=== PATIENT | female | born 1980 | race Two or more races ===

== ENCOUNTER 2020-02-13 10:43 | Inpatient (IN) | payer MEDICAID ==
[2020-02-13] VITALS (32 sets, daily range): BP systolic 130–222; BP diastolic 85–143
[~2020-02-13] VITALS: Ht 154.4 cm; Wt 57.0 kg
--- NOTE | 2020-02-13 10:50 | NUR ---
ED Nurse Note: Brought in by ambulance from home due to sudden dyspnea/SOB. Reports no CP. Patient found to have pulse oximetry reading ~80% on room air. EMS provided 15L NB. Pulse oximetry reading now is 100%. Patient sitting on the side of the bed, maintaining high valdez position. Patient get dialysis T, TH, SAT and did not miss her dialysis. Dialysis catheter to right upper chest noted. Placed patient on quality assurance monitor chassis, established IV. Reassured patient. Bed in lowest position. Call light within reach. Airborne, contact, droplet precaution initiated.
[2020-02-13] MEDS ORDERED: Nitroglycerin 2% oint pkt TOPIC ONE (11:15)
[2020-02-13] MEDS: Nitroglycerin Subl 0.4mg tab SL PRN ×3 (11:17→11:29)
[2020-02-13 11:24] LABS: BASOPHILS % (AUTO) 1.3 % (0.0-2.0); EOSINOPHILS % (AUTO) 1.1 % (0.0-3.0); HEMOGLOBIN 8.5 G/DL (12.0-16.0); LYMPHOCYTES % (AUTO) 11.5 % (20.0-45.0); MEAN CORPUSCULAR VOLUME 83 FL (80-99); MONOCYTES % (AUTO) 4.6 % (1.0-10.0); NEUTROPHILS % (AUTO) 81.5 % (45.0-75.0); PLATELET COUNT 111 K/UL (150-450); RED BLOOD COUNT 3.01 M/UL (4.20-5.40); RED CELL DISTRIBUTION WIDTH 15.3 % (11.6-14.8); WHITE BLOOD COUNT 8.5 K/UL (4.8-10.8)
[2020-02-13 11:28] LABS: ANION GAP 15 mmol/L (5-15); BLOOD UREA NITROGEN 67 mg/dL (7-18); CALCIUM 8.1 MG/DL (8.5-10.1); CARBON DIOXIDE 21 MMOL/L (21-32); CHLORIDE 101 MMOL/L (98-107); CREATININE 10.7 MG/DL (0.55-1.30); POTASSIUM 5.2 MMOL/L (3.5-5.1); SODIUM 137 MMOL/L (136-145)
--- NOTE | 2020-02-13 11:35 | NUR ---
ED Nurse Note: Patient c/o feeling hot and asking for air @ 1120. Patient appears to be anxious, sweating noted. Given NTG tablet as ordered and no sweating visible and patient applears to be comfortable. Patient sitting in high valdez position. reports no CP. Bed in lowest position. Call light within reach.
[2020-02-13 11:42] LABS: ALANINE AMINOTRANSFERASE 21 U/L (12-78); ALBUMIN 3.6 G/DL (3.4-5.0); ALBUMIN/GLOBULIN RATIO 0.9 (1.0-2.7); ALKALINE PHOSPHATASE 92 U/L (46-116); ASPARTATE AMINO TRANSFERASE 30 U/L (15-37); BILIRUBIN,TOTAL 0.9 MG/DL (0.2-1.0)
--- NOTE | 2020-02-13 11:46 | NUR ---
ED Nurse Note: RT placed BiPAP 06/02 @ 100%. Patient reports improved breathing, tolerating BiPAP at this time. Pulse oximetry reading @ 100%
--- NOTE | 2020-02-13 13:07 | NUR ---
ED Nurse Note: Patient reported bleeding with Bumex and RN checked with Sagar, pharmacist and it's the same class of medication with Lasix. Will check with ERMD if it ok to administer.
--- NOTE | 2020-02-13 13:15 | NUR ---
ED Nurse Note: BUDD made aware that patient received blood transfusion last Thursday. Patient states she has bleeding with Bumex. ERMD ordered to hold Lasix at this time.
--- NOTE | 2020-02-13 13:30 | NUR ---
ED Nurse Note: BUDD made aware of blood pressure 190/133. Patient reports no CP.
--- NOTE | 2020-02-13 13:30 | NUR ---
ED Nurse Note: Report given to MERA Nunn.
[2020-02-13] MEDS ORDERED: IRON159 MG PO (13:31)
[2020-02-13] MEDS ORDERED: AMLODIPINE BESYL5 MG ORAL (13:31)
[2020-02-13] MEDS ORDERED: LABETALOL HCL100 MG ORAL (13:32)
--- NOTE | 2020-02-13 14:26 | NUR ---
ED Nurse Note: ENDROSEMENT RECEIVED FROM MERA SALGADO. PT PN BIPAP SETTINGS; 06/10. PT SBP 192. ERMD AWARE. WILL START PT ON NITRO DRIP. PT HAS TWO IV SITES, BOTH PATENT AND INTACT. PT TOLERATING BIPAP WELL.
--- NOTE | 2020-02-13 14:27 | NUR ---
ED Nurse Note: Patient moved from room 7 to 1. Report given to MERA Gomez. Patient remained on BiPAP. Dr. Gonzalez notified of high BP. Patient reports no CP and tolerating BiPAP comfortably.
[2020-02-13] MEDS ORDERED: Nitroglycerin 50mg/250ml btl 250 ML IV SCH (14:30)
--- NOTE | 2020-02-13 15:05 | NUR ---
ED Nurse Note: TELEPHONE ENDORSEMENT GIVEN TO MERA DUNBAR FOR CONTINUITY OF CARE.
--- NOTE | 2020-02-13 15:14 | NUR ---
ED Nurse Note: MRSA SWAB COLLECTED, PT REFUSED VRE/CRE
--- NOTE | 2020-02-13 15:42 | NUR ---
TRANSFER TO FLOOR: Patient transferred to ICU as ordered, per ERMD. Report given to MERA DUNBAR. Belongings GIVEN TO PT.
--- NOTE | 2020-02-13 15:45 | NUR ---
NURSE NOTES: Pt and report received from MERA Gomez. Pt admitted to ICU from ED for respiratory distress. Pt awake, alert, and oriented x4. No distress and/or discomfort noted at this time. Pt on Non rebreather 15L, O2sat 100%. PIV Lt AC and Rt AC #20g, running Nitroglycerin @ 50mcg/min. B/P in the 190's. Dr Mccarty on the unit assessing pt, ordered STAT dialysis for today. Pt has Rt upper chest ravindra cath. Skin clean. Pt oriented to the unit. Bed locked and in lowest position with call light within reach. Will resume plan of care.
[2020-02-13] MEDS ORDERED: Heparin Sod 1000 units/ml 10ml IV PRN (16:01)
[2020-02-13] MEDS ORDERED: Heparin 1000 units/ml 1ml Vial INJ PRN (16:01)
--- NOTE | 2020-02-13 17:00 | NUR ---
NURSE NOTES: Pt resting comfortably in bed, eating dinner and talking to family on her cell phone. No respiratory distress noted at this time. Pt remains on a non rebreather 15L, 100%. O2sat 100%. B/P remains high, in the 180's and Nitroglycerin continues to be increased.
[2020-02-13] MEDS: Nitroglycerin 50mg/250ml btl 250 ML IV SCH (17:03)
--- NOTE | 2020-02-13 17:10 | Diagnostic Imaging Report ---
Indication: Shortness of breath Technique: One view of the chest Comparison: none Findings: There are moderate to large bilateral pleural effusions. There is extensive bilateral interstitial and airspace edema versus infiltrates. The heart size is difficult to assess as it borders are largely obscured, probably enlarged. There is a right jugular tunneled dialysis catheter noted. Impression: Extensive bilateral interstitial and airspace edema versus infiltrates Moderate to large bilateral pleural effusions Cardiomegaly
--- NOTE | 2020-02-13 18:00 | Consultation ---
DATE OF CONSULTATION: 02/13/2020 ATTENDING PHYSICIAN: Stan Griffith MD REASON FOR CONSULTATION: This is a dialysis patient. HISTORY OF PRESENT ILLNESS: This is a 39-year-old female who started dialysis 2 months ago. The patient is on dialysis every Thursday, , and Thursday. She gets dialysis in a dialysis center about 15 miles from home, but only 2 hours. The patient claims that after 2 hours her blood pressure starts going up and she gets dizzy. She has only PermCath as her dialysis access. PAST MEDICAL HISTORY: 1. End-stage renal failure. 2. Hypertensive cardiovascular disease. MEDICATIONS: Amlodipine, oral iron, labetalol. ALLERGIES: Bumetanide, penicillins. FAMILY HISTORY: Unremarkable. SOCIAL HISTORY: She lives at home. HABITS: She is a nonsmoker, nondrinker. There is no history of illicit drug abuse. REVIEW OF SYSTEMS: HEENT: Hearing and eyesight are normal. ENDOCRINE: No history of diabetes, thyroid, or adrenal problems. RESPIRATORY: She has orthopnea, paroxysmal nocturnal dyspnea, and dyspnea on effort. CARDIAC: She denies chest pain or palpitations. GENITOURINARY: She denies dysuria, frequency, urgency, or hematuria. NEUROLOGIC: No history of stroke, syncope, Parkinson disease. PHYSICAL EXAMINATION: GENERAL: This is a very young female who is in moderate respiratory distress. VITAL SIGNS: Blood pressure 188/116, pulse 89, respirations 20, labored, temperature 98.4, oral HEENT: The head is normocephalic and atraumatic. Pupils are equal and reactive to light and accommodation consensually. NECK: Supple. Trachea midline. There was no lymphadenopathy or thyromegaly. LUNGS: Bilateral wheezes and crackles. CHEST: She has right-sided internal jugular PermCath. HEART: Regular rate and rhythm. She has a grade 2 ejection murmur. ABDOMEN: Soft and nontender. Bowel sounds were active. EXTREMITIES: No clubbing, cyanosis, or edema. NEUROLOGIC: She is alert and oriented x4. Cranial nerves II through XII intact. LABORATORY AND ANCILLARY DATA: CBC shows hematocrit 25, otherwise within normal limits. Chemistry, sodium 137, potassium 5.2, creatinine 10.7, BUN 67, troponin level 0.0733. ProBNP 35,000. IMAGING STUDIES: Not reported. ASSESSMENT: 1. Pulmonary edema. 2. End-stage renal failure. 3. Hypertensive cardiovascular disease. PLAN: 1. Start dialysis ordered. 2. Blood pressure control. Thank you, Dr. Griffith, for letting me to participate in the care of this patient. Scott Talavera M.D. DR: NAZARIO JOB#: [id number] CC:
--- NOTE | 2020-02-13 18:15 | History and Physical Report ---
DATE OF ADMISSION: 02/13/2020 REASON FOR ADMISSION: Hypertensive emergency. HISTORY OF PRESENT ILLNESS: This is a 39-year-old female who is a chronic dialysis patient who presents with pulmonary edema. The patient was placed on BiPAP and also started on nitroglycerin drip. The patient's care discussed and reviewed. The emergency documentation reviewed. The patient describes sudden dyspnea and shortness of breath. The patient was noted to be significantly hypoxemic. She was brought in by paramedics, placed initially on 15 liters non-rebreather. The patient does note she gets dialysis Thursday, , and Saturdays and did not miss the dialysis days. The patient does have a catheter in the right upper chest wall. PAST MEDICAL HISTORY: Notable for end-stage renal disease, hypertension. MEDICATIONS: Reviewed. ALLERGIES: Reviewed. SOCIAL HISTORY: The patient is a chronically disabled. PHYSICAL EXAMINATION: GENERAL: This is a well-developed female, currently on BiPAP. VITAL SIGNS: Temperature 98.4, pulse 89, respiratory rate 20, blood pressure 188/116. The patient is on BiPAP. HEENT: Negative. NECK: Supple. LUNGS: Moderate breath sounds and crackles noted in the bases. CARDIAC: S1, S2. Regular rate and rhythm. Positive S4. ABDOMEN: Soft, nontender, nondistended. EXTREMITIES: No cyanosis or clubbing. LABORATORY DATA: Reviewed. Hemoglobin 8.5. Chemistries, BUN 67, creatinine 10.7. Troponin 0.073. The BNP greater than 35,000. IMPRESSION: 1. End-stage disease. 2. Acute pulmonary edema. 3. Hypertension. 4. Hypertensive heart disease. 5. Hypertensive emergency, possible non-STEMI. RECOMMENDATIONS: Support clinically. Renal evaluation for hemodialysis. Nitroglycerin drip to continue. Blood pressure monitor and Cardiology followup. Serial troponins. Resume home medications. DVT prophylaxis. Optimize and transfer to low level of care when able. Stan Griffith M.D. DR: Adebayo JOB#: [id number] CC:
--- NOTE | 2020-02-13 18:20 | NUR ---
NURSE NOTES: JOVANNY dialysis nurse, Bishnu, at bedside connecting pt to dialysis machine.
--- NOTE | 2020-02-13 18:39 | Emergency Room Report ---
History of Present Illness General Chief Complaint: Dyspnea/Respdistress Source: Patient Present Illness HPI 39-year-old female presents the ED for shortness of breath. Brought in by EMS from home. History of end-stage renal disease. On dialysis. Patient tripoding on arrival. Patient unable to speak in sentences. Unable to provide any additional history at this time. No reported fevers or chills. No reported sick contacts. No other aggravating relieving factors. No other associated symptoms Allergies: Coded Allergies: BUMETANIDE (Verified Allergy, Unknown, 02/13/20) PENICILLINS (Verified Allergy, Unknown, 02/13/20) COVID-19 Screening Contact w/high risk pt: No Experienced COVID-19 symptoms?: Yes COVID-19 Testing performed INDEPENDENT JEWELER: Yes COVID-19 Screening: Negative COVID-19 COVID-19 Testing Source: unk Patient History Past Medical History: HTN, renal disease, dialysis Last Menstrual Period: unk Now: No Nursing Documentation-PMH Past Medical History: No History, Except For Hx Cardiac Problems: Yes - chf Hx Hypertension: Yes Hx Dialysis: Yes Review of Systems All Other Systems: negative except mentioned in HPI Physical Exam Vital Signs Date Time Temp Pulse Resp B/P (MAP) Pulse Ox O2 Delivery O2 Flow Rate FiO2 02/13/20 10:31 122 32 230/164 (186) 82 Room Air 02/13/20 11:06 15.0 02/13/20 11:47 100 02/13/20 14:21 98.4 Sp02 EP Interpretation: reviewed, normal General Appearance: alert, GCS 15, non-toxic, severe distress Head: normocephalic, atraumatic Eyes: bilateral eye normal inspection, bilateral eye PERRL ENT: hearing grossly normal, normal pharynx, no angioedema, normal voice Neck: full range of motion, supple/symm/no masses Respiratory: chest non-tender, accessory muscle use, crackles Cardiovascular #1: regular rate, rhythm, no edema Cardiovascular #2: 2+ carotid (R), 2+ carotid (L), 2+ radial (R), 2+ radial (L), 2+ dorsalis pedis (R), 2+ dorsalis pedis (L) Gastrointestinal: normal bowel sounds, non tender, soft, non-distended, no guarding, no rebound Rectal: deferred Genitourinary: normal inspection, no CVA tenderness Musculoskeletal: back normal, normal range of motion, gait/station normal, non- tender Neurologic: alert, motor strength/tone normal, oriented x3, sensory intact, responsive, speech normal Psychiatric: judgement/insight normal, memory normal, mood/affect normal, no suicidal/homicidal ideation Reflexes: 3+ bicep (R), 3+ bicep (L), 3+ tricep (R), 3+ tricep (L), 3+ knee (R), 3+ knee (L) Skin: other - see skin notes Lymphatic: no adenopathy Procedures Critical Care Time Critical Care Time i. I feel this is a highly complex case requiring extensive working including EKG/Rhythm strip, Xray/CT/US, Blood/urine lab work, repeat exams while in ED, and administration of strong opiates/narcotics for pain control, admission to hospital or close patient follow up. Total time: 75 min bedside evaluation and treatment excludes procedures (EKG). Reason for critical care: respiratory distress, pulmonay edema Possible complications: hypotension, hypertension, IA, shock, arrhythmias, metabolic acidosis, end organ damage, respiratory failure. Interventions: labs, EKG, CXR, ABG, COVID, nitro SL, nitropaste, nitro drip. Course: Patient presenting with shortness of breath. Diffuse rales. Tripoding position. Started on sublingual nitro and Nitropaste. ABG shows no significant hypercapnia or hypoxia. Started on BiPAP. COVID negative. Chest x-ray shows pulmonary edema. Patient respiratory status significantly improved but remains hypertensive. Started on nitro drip. Consultations: nursing staff, EMS, family Performed by: Dr Tran Tolerated well condition = critical j. because of unstable vital signs this patient had a condition that could potentially threaten life or limb. I feel this is a critical patient who required my full attention while patient was considered critical. Total Critical Care Time excluding procedures was greater than 75 minutes Medical Decision Making Diagnostic Impression: Primary Impression: Pulmonary edema Qualified Codes: J81.0 - Acute pulmonary edema Additional Impressions: ESRD on dialysis Hypertensive emergency ER Course Hospital Course 39-year-old female presents with shortness of breath, diffuse crackles and rales. Differential diagnoses include: IA/unstable angina, contusion, muscle strain, PTX, rib fracture Clinical course Patient placed on stretcher. on traffic monitor specialist. In isolation. I ordered COVID test. Diffuse rales noted. I ordered sublingual nitro and Nitropaste. BiPAP started. labs reviewed- no leukocytosis, hemoglobin/hematocrit stable, bun/creatinine elevated, troponins negative, BNP elevated EKG - NSR no acute ischemic changes interpreted by me CXR - pulmonary edema respiratory status improved after BiPAP and nitro. Patient cannot tolerate Lasix. Started on nitro drip because BP remains elevated Case discussed with Dr. Toro and he agreed to accept the patient to his service for further care and support I. I feel this is a highly complex case requiring extensive working including EKG/Rhythm strip, Xray/CT/US, Blood/urine lab work, repeat exams while in ED, and administration of strong opiates/narcotics for pain control, admission to hospital or close patient follow up. Diagnosis - pulmonary edema, esrd on dialysis, hypertensive emergency admitted to ICU in critical condition Laboratory Tests Test 02/13/20 10:43 02/13/20 10:45 02/13/20 11:08 White Blood Count 8.5 K/UL (4.8-10.8) Red Blood Count 3.01 M/UL (4.20-5.40) L Hemoglobin 8.5 G/DL (12.0-16.0) L Hematocrit 25.0 % (37.0-47.0) L Mean Corpuscular Volume 83 FL (80-99) Mean Corpuscular Hemoglobin 28.4 PG (27.0-31.0) Mean Corpuscular Hemoglobin Concent 34.1 G/DL (32.0-36.0) Red Cell Distribution Width 15.3 % (11.6-14.8) H Platelet Count 111 K/UL (150-450) L Mean Platelet Volume 5.8 FL (6.5-10.1) L Neutrophils (%) (Auto) 81.5 % (45.0-75.0) H Lymphocytes (%) (Auto) 11.5 % (20.0-45.0) L Monocytes (%) (Auto) 4.6 % (1.0-10.0) Eosinophils (%) (Auto) 1.1 % (0.0-3.0) Basophils (%) (Auto) 1.3 % (0.0-2.0) Sodium Level 137 MMOL/L (136-145) Potassium Level 5.2 MMOL/L (3.5-5.1) H Chloride Level 101 MMOL/L (98-107) Carbon Dioxide Level 21 MMOL/L (21-32) Anion Gap 15 mmol/L (5-15) Blood Urea Nitrogen 67 mg/dL (7-18) H Creatinine 10.7 MG/DL (0.55-1.30) H Estimat Glomerular Filtration Rate 4.0 mL/min (>60) Glucose Level 121 MG/DL (74-106) H Lactic Acid Level 0.80 mmol/L (0.4-2.0) Calcium Level 8.1 MG/DL (8.5-10.1) L Total Bilirubin 0.9 MG/DL (0.2-1.0) Aspartate Amino Transf (AST/SGOT) 30 U/L (15-37) Alanine Aminotransferase (ALT/SGPT) 21 U/L (12-78) Alkaline Phosphatase 92 U/L (46-116) Troponin I 0.073 ng/mL (0.000-0.056) Pro-B-Type Natriuretic Peptide > 26758 pg/mL (0-125) H Total Protein 7.8 G/DL (6.4-8.2) Albumin 3.6 G/DL (3.4-5.0) Globulin 4.2 g/dL Albumin/Globulin Ratio 0.9 (1.0-2.7) L Hepatitis B Surface Antigen Pending Arterial Blood pH 7.313 (7.350-7.450) Arterial Blood Partial Pressure CO2 39.5 mmHg (35.0-45.0) Arterial Blood Partial Pressure O2 114.2 mmHg (75.0-100.0) H Arterial Blood HCO3 19.6 mmol/L (22.0-26.0) L Arterial Blood Oxygen Saturation 97.2 % (95-100) Arterial Blood Base Excess -6.1 (-2-2) L Logan Test Positive EKG Diagnostic Results Rate: normal Rhythm: NSR ST Segments: no acute changes ASA given to the pt in ED: No Rhythm Strip Diag. Results EP Interpretation: yes Rhythm: NSR, no PVC's, no ectopy Chest X-Ray Diagnostic Results Chest X-Ray Diagnostic Results : Chest X-Ray Ordered: Yes # of Views/Limited/Complete: 1 View Indication: Shortness of Breath EP Interpretation: Yes Interpretation: no pneumothorax, other - pulmonary edema Impression: Other - pulmonary edema Electronically Signed by: Electronically signed by Robert Tran MD Last Vital Signs Date Time Temp Pulse Resp B/P (MAP) Pulse Ox O2 Delivery O2 Flow Rate FiO2 02/13/20 18:00 95 26 182/135 (151) 100 02/13/20 16:22 15.0 100 02/13/20 16:22 Non-Rebreather 02/13/20 15:58 98.5 Status: improved Disposition: ADMITTED INPATIENT Condition: Critical Referrals: NOT CHOSEN IPA/,REFERRING (PCP) Robert Tran MD Feb 13, 2020 18:39
--- NOTE | 2020-02-13 19:21 | NUR ---
NURSE HAND-OFF REPORT: Latest Vital Signs: Temperature 98.5 , Pulse 92 , B/P 152 /109 , Respiratory Rate 27 , O2 SAT 100 , Non-Rebreather, O2 Flow Rate 15.0L . Vital Sign Comment: EKG Rhythm: Sinus Rhythm Rhythm change?: MD Notified?: - MD Response: Latest Castillo Fall Score: 35 Fall Risk: Medium Risk Safety Measures: Call light Within Reach, Bed Alarm Zone 2, Side Rails Side Rails x3, Bed position Low and Locked. Fall Precautions: Yellow Socks Patient Fall Education Report given to MERA Jauregui.
--- NOTE | 2020-02-13 19:30 | NUR ---
NURSE NOTES: Received pt with chief complaints of SOB , a hemodialysis pt with Jeyson cath Rt SVC. SR on the monitor, pt on NTG drip at 100mcg/min at this time,Current bp 156/110. afebrile. On 100% NRB mask 02 sat 100%..On upright position at this time Will continue to monitor.
[2020-02-13] MEDS: Dyna-Hex 2% Top Sol 2oz TOPIC SCH (20:16)
--- NOTE | 2020-02-13 20:20 | NUR ---
NURSE NOTES: Hemodialysis was finished with 2L out.
[2020-02-13] MEDS: Epoetin Alfa-EPBX(ESRD on dialysis)4000 units/ml vial SUBQ SCH ×2 (21:00→21:29)
[2020-02-13] MEDS: Heparin 5000 units/ml inj SUBQ SCH (21:00)
[2020-02-13] MEDS: Pantoprazole Inj IVP SCH (21:01)
[2020-02-13] MEDS: Docusate 100mg cap ORAL SCH (21:02)
--- NOTE | 2020-02-13 21:08 | NUR ---
NURSE NOTES: Heparin on hold due to platelet ct 111
--- NOTE | 2020-02-13 23:30 | NUR ---
NURSE NOTES: Sleeping well at this time. no discomfort noted. NTG drip at 100mcg/min at this time. SBP 150s.
[2020-02-14] VITALS (21 sets, daily range): BP systolic 126–166; BP diastolic 84–106
--- NOTE | 2020-02-14 02:00 | NUR ---
NURSE NOTES: Still on NTG drip at 100mcg/min. Bp still on 150s. sleeping well at this time.No discomfort noted.
--- NOTE | 2020-02-14 03:50 | NUR ---
NURSE NOTES: Placed on Venturi mask 30% (4Liters ) by Resp therapist
--- NOTE | 2020-02-14 04:30 | Consultation ---
DATE OF CONSULTATION: 02/13/2020 CARDIOLOGY CONSULTATION CONSULTING PHYSICIAN: Abhishek Vargas M.D. REQUESTING PHYSICIAN: Stan Griffith M.D. REASON: Hypertensive urgency. HISTORY OF PRESENT ILLNESS: This is a 39-year-old female who is on hemodialysis, presented to the emergency room with shortness of breath and was noted to have clinical and radiographic evidence of pulmonary edema and hypoxia. The patient was on a non-rebreather mask and had her last dialysis session Thursday (she is on a Thursday, , Thursday schedule). The patient denied any chest pain, but has been short of breath. PAST MEDICAL HISTORY: Hypertension, end-stage renal disease, PermCath. ALLERGIES: Include penicillin and bumetanide. MEDICATIONS: Reviewed and reconciled. FAMILY HISTORY: Noncontributory. SOCIAL HISTORY: Nonsmoker. No alcohol or substance abuse. REVIEW OF SYSTEMS: No fevers. No loss of vision or hearing. No fevers or chills. No known history of diabetes or thyroid disorder. No history of seizure or stroke. No history of prior heart attack. PHYSICAL EXAMINATION: GENERAL: She is in moderate respiratory distress. VITAL SIGNS: Blood pressure 188/116, heart rate 89, respiratory rate 20, and she is afebrile. HEENT: Conjunctivae pink. Oropharynx clear. NECK: Supple. Jugular venous pressure elevated. LUNGS: With bilateral rales. CARDIAC: Regular rhythm and rate. Normal S1, S2. A 1/6 systolic murmur at base. CHEST WALL: Right chest wall internal jugular PermCath site clean and dry. ABDOMEN: Soft, nontender. No bruits. EXTREMITIES: No edema. LABORATORY AND DIAGNOSTIC DATA: Labs reviewed with natriuretic peptide of 35,000 and troponin of 0.073. Hematocrit was 25% and potassium 5.2. EKG with sinus rhythm. No acute abnormalities. IMPRESSION: 1. Hypertensive urgency. 2. End-stage renal disease. 3. Pulmonary edema. 4. Pleural effusions. 5. Acute myocardial ischemia and possible [id number] myocardial infarction precipitated by uncontrolled blood pressure. PLAN: 1. BiPAP support. 2. IV nitroglycerin. 3. Initiate oral amlodipine and labetalol and titrate. 4. Hold heparin for now until blood pressure controlled. 5. Hemodialysis with ultrafiltration. 6. Serial troponin levels. Abhishek Vargas M.D. DR: ARIANA JOB#: [id number] CC:
[2020-02-14] MEDS: Nitroglycerin 50mg/250ml btl 250 ML IV SCH (04:31)
[2020-02-14 05:51] LABS: HEMATOCRIT 21.6 % (37.0-47.0); HEMOGLOBIN 7.4 G/DL (12.0-16.0); MEAN CORPUSCULAR VOLUME 84 FL (80-99); PLATELET COUNT 104 K/UL (150-450); RED BLOOD COUNT 2.58 M/UL (4.20-5.40); RED CELL DISTRIBUTION WIDTH 14.9 % (11.6-14.8); WHITE BLOOD COUNT 6.3 K/UL (4.8-10.8)
--- NOTE | 2020-02-14 06:00 | NUR ---
NURSE NOTES: Still sleeping at this time. BP within acceptable range, Still on NTG drip at 100mcg/min.
[2020-02-14 06:17] LABS: CALCIUM 8.2 MG/DL (8.5-10.1); CREATININE 8.6 MG/DL (0.55-1.30); POTASSIUM 4.5 MMOL/L (3.5-5.1)
--- NOTE | 2020-02-14 07:31 | NUR ---
NURSE HAND-OFF REPORT: Latest Vital Signs: Temperature 97.5 , Pulse 68 , B/P 157 /105 , Respiratory Rate 18 , O2 SAT 100 , Non-Rebreather, O2 Flow Rate 3.0 . Vital Sign Comment: EKG Rhythm: Sinus Rhythm Rhythm change?: N MD Notified?: - MD Response: Latest Castillo Fall Score: 35 Fall Risk: Medium Risk Safety Measures: Call light Within Reach, Bed Alarm Zone 2, Side Rails Side Rails x3, Bed position Low and Locked. Fall Precautions: Yellow Socks Patient Fall Education Report given to [Herman TESFAYE.
--- NOTE | 2020-02-14 08:00 | NUR ---
0745 FULLY AWAKE/ALERT VS/CONDITION STABLE ENCOURAGED TAKE DEEP BREATH/COUGH FOLOWS WELL ON O2 3L/NC HOB @35 NOACUTE DISTRESS NOTED
--- NOTE | 2020-02-14 08:05 | General Progress Note ---
Subjective Allergies: Coded Allergies: BUMETANIDE (Verified Allergy, Unknown, 02/13/20) PENICILLINS (Verified Allergy, Unknown, 02/13/20) Subjective care noted improved bp better Objective Last 24 Hour Vital Signs Date Time Temp Pulse Resp B/P (MAP) Pulse Ox O2 Delivery O2 Flow Rate FiO2 02/14/20 05:19 100 Nasal Cannula 3.0 32 02/14/20 04:33 68 157/105 02/14/20 04:31 152/100 02/14/20 04:00 83 02/14/20 04:00 Non-Rebreather 15.0 02/14/20 03:23 100 Venturi Mask 4.0 30 02/14/20 00:00 Non-Rebreather 15.0 02/13/20 22:45 77 18 143/96 (112) 100 02/13/20 22:30 81 21 153/111 (125) 100 02/13/20 22:15 95 26 171/114 (133) 91 02/13/20 22:00 91 17 146/101 (116) 95 02/13/20 21:45 101 27 130/85 (100) 99 02/13/20 21:30 90 25 159/113 (128) 93 02/13/20 21:15 100 23 168/118 (135) 92 02/13/20 21:02 84 173/111 02/13/20 21:00 85 18 173/111 (131) 100 02/13/20 20:45 86 23 158/119 (132) 100 02/13/20 20:30 83 26 178/119 (138) 100 02/13/20 20:15 90 26 161/126 (138) 100 02/13/20 20:00 Non-Rebreather 15.0 02/13/20 20:00 81 02/13/20 20:00 97.5 91 27 166/125 (139) 100 02/13/20 19:45 93 26 155/118 (130) 100 02/13/20 19:30 94 23 156/110 (125) 100 02/13/20 19:00 92 27 152/109 (123) 100 02/13/20 18:00 95 26 182/135 (151) 100 02/13/20 18:00 Non-Rebreather 15.0 02/13/20 17:45 82 23 199/119 (145) 100 02/13/20 17:30 95 28 186/127 (146) 100 02/13/20 17:15 100 23 182/127 (145) 97 02/13/20 17:03 177/131 02/13/20 17:00 93 23 177/131 (146) 100 02/13/20 16:45 91 22 179/128 (145) 100 02/13/20 16:30 96 19 181/128 (145) 100 02/13/20 16:22 15.0 100 02/13/20 16:22 Non-Rebreather 15.0 02/13/20 16:15 84 25 174/119 (137) 100 02/13/20 16:00 87 25 179/120 (139) 100 02/13/20 15:58 98.5 89 20 175/123 (140) 100 02/13/20 15:53 170/121 (137) 02/13/20 15:41 98.4 89 20 188/116 100 Bi-pap 15.0 100 02/13/20 15:23 98.4 86 20 174/127 100 Bi-pap 15.0 100 02/13/20 14:45 98 25 100 100 02/13/20 14:37 192/121 02/13/20 14:28 98.4 78 19 192/121 100 Bi-pap 15.0 100 02/13/20 14:21 98.4 81 22 192/100 100 Bi-pap 100 02/13/20 13:08 85 22 182/94 100 Bi-pap 02/13/20 13:00 81 20 Bi-pap 100 02/13/20 11:50 101 39 100 100 02/13/20 11:50 88 29 199/137 100 Bi-pap 100 02/13/20 11:47 100 02/13/20 11:32 197/133 02/13/20 11:29 197/149 02/13/20 11:23 220/150 02/13/20 11:17 222/143 02/13/20 11:06 119 28 222/143 100 Non-Rebreather 02/13/20 11:06 119 34 Non-Rebreather 15.0 02/13/20 10:31 122 32 230/164 (186) 82 Room Air Intake and Output 02/13/20 02/14/20 19:00 07:00 Intake Total 257.800 ml 470 ml Output Total 0 ml 2050 ml Balance 257.800 ml -1580 ml Intake Oral 100 ml 170 ml IV Total 157.800 ml 300 ml Output Urine Total 0 ml 50 ml Hemodialysis UF 2000 ml Laboratory Tests 02/13/20 10:43: White Blood Count 8.5, Red Blood Count 3.01L, Hemoglobin 8.5L, Hematocrit 25.0L, Mean Corpuscular Volume 83, Mean Corpuscular Hemoglobin 28.4, Mean Corpuscular Hemoglobin Concent 34.1, Red Cell Distribution Width 15.3H, Platelet Count 111L, Mean Platelet Volume 5.8L, Neutrophils (%) (Auto) 81.5H, Lymphocytes (%) (Auto) 11.5L, Monocytes (%) (Auto) 4.6, Eosinophils (%) (Auto) 1.1, Basophils (%) (Auto) 1.3, Sodium Level 137, Potassium Level 5.2H, Chloride Level 101, Carbon Dioxide Level 21, Anion Gap 15, Blood Urea Nitrogen 67H, Creatinine 10.7H, Estimat Glomerular Filtration Rate 4.0, Glucose Level 121H, Lactic Acid Level 0.80, Calcium Level 8.1L, Total Bilirubin 0.9, Aspartate Amino Transf (AST/SGOT) 30, Alanine Aminotransferase (ALT/SGPT) 21, Alkaline Phosphatase 92, Troponin I 0.073H, Pro-B-Type Natriuretic Peptide > 75685N, Total Protein 7.8, Albumin 3.6, Globulin 4.2, Albumin/Globulin Ratio 0.9L 02/13/20 10:45: Hepatitis B Surface Antigen Negative 02/13/20 11:08: Arterial Blood pH 7.313L, Arterial Blood Partial Pressure CO2 39.5, Arterial Blood Partial Pressure O2 114.2H, Arterial Blood HCO3 19.6L, Arterial Blood Oxygen Saturation 97.2, Arterial Blood Base Excess -6.1L, Logan Test Positive 02/14/20 05:25: White Blood Count 6.3, Red Blood Count 2.58L, Hemoglobin 7.4L, Hematocrit 21.6L, Mean Corpuscular Volume 84, Mean Corpuscular Hemoglobin 28.6, Mean Corpuscular Hemoglobin Concent 34.2, Red Cell Distribution Width 14.9H, Platelet Count 104L, Mean Platelet Volume 6.1L, Neutrophils (%) (Auto) , Lymphocytes (%) (Auto) , Monocytes (%) (Auto) , Eosinophils (%) (Auto) , Basophils (%) (Auto) , Sodium Level 136, Potassium Level 4.5, Chloride Level 100, Carbon Dioxide Level 23, Anion Gap 13, Blood Urea Nitrogen 50H, Creatinine 8.6H, Estimat Glomerular Filtration Rate 5.1, Glucose Level 92, Calcium Level 8.2L, Troponin I 0.126H, Neutrophils % (Manual) [Pending], Lymphocytes % (Manual) [Pending], Platelet Estimate [Pending], Platelet Morphology [Pending], Magnesium Level 2.1 Height (Feet): 5 Height (Inches): 0.80 Weight (Pounds): 120 Objective WDWN NAD clear breath sounds bilaterally without rhonchi or wheeze [id number] without MRG NABS nontender no HSM no CCE nonfocal Assessment/Plan Assessment/Plan: IMPRESSION: 1. End-stage disease. 2. Acute pulmonary edema. 3. Hypertension. 4. Hypertensive heart disease. 5. Hypertensive emergency, possible non-STEMI. PLAN taper drips antihypertensives HD monitor labs cardiology input noted medications/laboratory data/nursing notes/ICU care reviewed in detail note reviewed and edited care discussed with RN and RT ICU time spent >40 minutes Stan Griffith MD Feb 14, 2020 08:05
[2020-02-14] MEDS: Heparin 5000 units/ml inj SUBQ SCH ×2 (09:00→21:00)
[2020-02-14] MEDS: Pantoprazole Inj IVP SCH ×2 (09:07→21:35)
[2020-02-14] MEDS: Docusate 100mg cap ORAL SCH ×3 (09:08→21:35)
--- NOTE | 2020-02-14 09:26 | NUR ---
CASE MANAGEMENT: INITIAL REVIEW 39YR OLD BIBA FROM HOME CC: DYSPNEA . RESPIRATORY DISTRESS SI:NSTEMI . ACUTE PULMONARY EDEMA . RESPIRATORY DISTRESS . HYPERTENSIVE URGENCY . ESRD ON HD THROMBOCYTOPENIA 98.4 122 32 230/164 82% ON RA --- PLACED ON NRM K+5.2 BUN/CREAT 67/10.7 TROP 0.073 BNP>87000 PLT 111 ABG: pH 7.313 pO2 114.2 HCO3 19.6 IS: NTG Q5MIN X3 NITRO-BID TP X1 IV LASIX X1 IV LEVAQUIN X1 NITROGLYCERIN GTT PROTOCOL XRAY Chest 1v- Extensive bilateral interstitial and airspace edema versus infiltrates. Moderate to large bilateral pleural effusions. Cardiomegaly \: TRANSFER TO INTENSIVE CARE UNIT PLAN: BLOOD PRESSURE CONTROL OXYGEN THERAPY HD INITIATED HEP PANEL NEGATIVE CASE MANAGEMENT: REVIEW 02/14/20 SI:NSTEMI . ACUTE PULMONARY EDEMA . RESPIRATORY DISTRESS . HYPERTENSIVE URGENCY . ESRD ON HD THROMBOCYTOPENIA 98.6 88 16 157/105 100% ON NRM H/H 7.4/21.6 PLT 104 BUN/CREAT 50/8.6 TROP 0.126 IS:GTT NITROGLYCERIN PROTOCOL Q24 NORMODYNE PO BID NORVASC PO BID IV PROTONIX BID EPOETIN SQ MWF \:INTENSIVE CARE UNIT DCP: HOME WHEN STABLE PLAN: BLOOD PRESSURE CONTROL OXYGEN THERAPY ~FAILED WEANING MONITOR TROP ~INCREASING
--- NOTE | 2020-02-14 10:05 | Diagnostic Imaging Report ---
Indication: Shortness of breath Technique: One view of the chest Comparison: 02/13/2020 Edema versus infiltrates again demonstrated, stable on the right, suggestively slightly improved on the left. Bilateral pleural effusions persist, unchanged. Right jugular tunneled dialysis catheter is again demonstrated. Impression: Slightly improved edema versus infiltrates on the left, unchanged on the right Unchanged bilateral pleural fluid
--- NOTE | 2020-02-14 11:13 | NUR ---
0941 PT,SEEN BY MISAEL REINOSOW ORDERS
--- NOTE | 2020-02-14 12:11 | NUR ---
TECH ED TEACHER NOTE SW met w/ pt and completed the psychosocial assessment. Pt's primary language is Urdu. Pt was able to understand and speak Bengali. SW utilized gasfitter Irma #[id number] to have communication w/ pt smoothly. Pt presents as A&O4x. Pt currently resides w/ her family at [address] [place] [address]. Pt has three minor children living w/ her. Pt is unemployed and she receives financial support from her . PT is independent w/ ADLs and IADLs and ambulatory w/o DMEs. Pt denies tobacco use/ETOH use/substance abuse. PT also denies having mental health issue. Pt receives dialysis at [facility] every Tuesdays, and Saturdays. Pt did not share any concerns/needs at this time. Emergency contacts: Jimenez Dinero (brother) [phone]. Mauricio () does not have a phone number.
--- NOTE | 2020-02-14 12:49 | Nephrology Progress Note ---
Assessment/Plan Plan Noncompliance CHF, Uremic. Getting very poor HD outside. Needs 3.5 h x3/week. Needs AVF! Needs better BP control. Subjective Subjective No new c/o Objective Objective Last 24 Hour Vital Signs Date Time Temp Pulse Resp B/P (MAP) Pulse Ox O2 Delivery O2 Flow Rate FiO2 02/14/20 12:00 82 02/14/20 12:00 98.2 82 20 135/94 (108) 100 02/14/20 12:00 Non-Rebreather 15.0 02/14/20 11:30 82 23 149/97 (114) 100 02/14/20 11:00 86 23 137/92 (107) 100 02/14/20 10:30 86 23 132/92 (105) 91 02/14/20 10:00 86 24 131/89 (103) 91 02/14/20 09:30 85 23 126/84 (98) 100 02/14/20 09:10 96 139/93 02/14/20 09:09 89 139/93 02/14/20 09:00 90 23 134/90 (105) 98 02/14/20 08:30 86 22 133/93 (106) 99 02/14/20 08:00 Non-Rebreather 15.0 02/14/20 08:00 98.6 78 16 143/93 (110) 100 02/14/20 08:00 88 02/14/20 07:00 78 16 135/93 (107) 100 02/14/20 05:19 100 Nasal Cannula 3.0 32 02/14/20 04:33 68 157/105 02/14/20 04:31 152/100 02/14/20 04:00 83 02/14/20 04:00 Non-Rebreather 15.0 02/14/20 03:23 100 Venturi Mask 4.0 30 02/14/20 00:00 Non-Rebreather 15.0 02/13/20 22:45 77 18 143/96 (112) 100 02/13/20 22:30 81 21 153/111 (125) 100 02/13/20 22:15 95 26 171/114 (133) 91 02/13/20 22:00 91 17 146/101 (116) 95 02/13/20 21:45 101 27 130/85 (100) 99 02/13/20 21:30 90 25 159/113 (128) 93 02/13/20 21:15 100 23 168/118 (135) 92 02/13/20 21:02 84 173/111 02/13/20 21:00 85 18 173/111 (131) 100 02/13/20 20:45 86 23 158/119 (132) 100 02/13/20 20:30 83 26 178/119 (138) 100 02/13/20 20:15 90 26 161/126 (138) 100 02/13/20 20:00 Non-Rebreather 15.0 02/13/20 20:00 81 02/13/20 20:00 97.5 91 27 166/125 (139) 100 02/13/20 19:45 93 26 155/118 (130) 100 02/13/20 19:30 94 23 156/110 (125) 100 02/13/20 19:00 92 27 152/109 (123) 100 02/13/20 18:00 95 26 182/135 (151) 100 02/13/20 18:00 Non-Rebreather 15.0 02/13/20 17:45 82 23 199/119 (145) 100 02/13/20 17:30 95 28 186/127 (146) 100 02/13/20 17:15 100 23 182/127 (145) 97 02/13/20 17:03 177/131 02/13/20 17:00 93 23 177/131 (146) 100 02/13/20 16:45 91 22 179/128 (145) 100 02/13/20 16:30 96 19 181/128 (145) 100 02/13/20 16:22 15.0 100 02/13/20 16:22 Non-Rebreather 15.0 02/13/20 16:15 84 25 174/119 (137) 100 02/13/20 16:00 87 25 179/120 (139) 100 02/13/20 15:58 98.5 89 20 175/123 (140) 100 02/13/20 15:53 170/121 (137) 02/13/20 15:41 98.4 89 20 188/116 100 Bi-pap 15.0 100 02/13/20 15:23 98.4 86 20 174/127 100 Bi-pap 15.0 100 02/13/20 14:45 98 25 100 100 02/13/20 14:37 192/121 02/13/20 14:28 98.4 78 19 192/121 100 Bi-pap 15.0 100 02/13/20 14:21 98.4 81 22 192/100 100 Bi-pap 100 02/13/20 13:08 85 22 182/94 100 Bi-pap 02/13/20 13:00 81 20 Bi-pap 100 Intake and Output 02/13/20 02/14/20 19:00 07:00 Intake Total 257.800 ml 500 ml Output Total 0 ml 2050 ml Balance 257.800 ml -1550 ml Intake Oral 100 ml 170 ml IV Total 157.800 ml 330 ml Output Urine Total 0 ml 50 ml Hemodialysis UF 2000 ml Laboratory Tests 02/14/20 05:25: White Blood Count 6.3, Red Blood Count 2.58L, Hemoglobin 7.4L, Hematocrit 21.6L, Mean Corpuscular Volume 84, Mean Corpuscular Hemoglobin 28.6, Mean Corpuscular Hemoglobin Concent 34.2, Red Cell Distribution Width 14.9H, Platelet Count 104L, Mean Platelet Volume 6.1L, Neutrophils (%) (Auto) , Lymphocytes (%) (Auto) , Monocytes (%) (Auto) , Eosinophils (%) (Auto) , Basophils (%) (Auto) , Differential Total Cells Counted 100, Neutrophils % (Manual) 79H, Lymphocytes % (Manual) 13L, Monocytes % (Manual) 7, Eosinophils % (Manual) 1, Basophils % (Manual) 0, Band Neutrophils 0, Platelet Estimate DecreasedL, Platelet Mo rphology Normal, Anisocytosis 1+, Sodium Level 136, Potassium Level 4.5, Chloride Level 100, Carbon Dioxide Level 23, Anion Gap 13, Blood Urea Nitrogen 50H, Creatinine 8.6H, Estimat Glomerular Filtration Rate 5.1, Glucose Level 92, Calcium Level 8.2L, Magnesium Level 2.1, Troponin I 0.126H Height (Feet): 5 Height (Inches): 0.80 Weight (Pounds): 120 Objective CV RR RIJ PC Lungs CTA Abd SNT E No CCE. Scott Talavera MD Feb 14, 2020 12:49
--- NOTE | 2020-02-14 13:08 | NUR ---
RADIOLOGY DEPT., CHEST X-RAY DONE.-P.DYE
--- NOTE | 2020-02-14 13:28 | NUR ---
1330pt, seen bydesean elise no new orders
--- NOTE | 2020-02-14 15:25 | Cardiology Report ---
APPROVED REPORT EXAM: Two-dimensional and M-mode echocardiogram with Doppler and color Doppler. INDICATION Congestive Heart Failure M-Mode DIMENSIONS IVSd1.0 (0.7-1.1cm)Left Atrium (MM)4.0 (1.6-4.0cm) LVDd3.0 (3.5-5.6cm)Aortic Root3.1 (2.0-3.7cm) PWd2.0 (0.7-1.1cm)Aortic Cusp Exc.1.9 (1.5-2.0cm) IVSs1.6 cm LVDs1.7 (2.5-4.0cm) PWs2.4 cm <Conclusion> Normal left ventricular chamber size, systolic function and wall motion. Left ventricular ejection fraction estimated to be 55-60%. Mild left ventricular hypertrophy by2-D. Small pericardial effusion present , no evidence of RV diastolic collapse with respiratory variation. Large pleural effusion present. All other cardiac chamber sizes are within normal limits. Calcification of aortic valve with adequate cusp excursion. Thickened mitral valve leaflets with normal excursion. Mitral annulus and aortic root calcification. Pulmonic valve not well visualized. Normal tricuspid valve structure. IVC at normal size with physiologic collapse. A color flow and spectral Doppler study was performed and revealed: Mild aortic insufficiency. Mild mitral regurgitation. Mitral diastolic velocities suggest reduced left ventricular relaxation c/w mild LV diastolic dysfunction (Grade I ). Mild tricuspid regurgitation. Tricuspid systolic velocities suggests peak right ventricular systolic pressure of 49 mmHg,consistent with moderate pulmonary hypertension. Mild pulmonic regurgitation present.
--- NOTE | 2020-02-14 16:52 | NUR ---
1645 V/S CONDITION STABLE O2 SAT 100% ON O2 3L/NC NOACUTE DISTRESS NOTED NTG DRIP MELLISA,Aretha PER MAGNO REINOSO
--- NOTE | 2020-02-14 17:45 | Cardiology Report ---
APPROVED REPORT EKG Measurement Heart [id number] MD [id number] <Conclusion> Sinus tachycardia Possible Left atrial enlargement Right superior axis deviation Anterior infarct, age undetermined Abnormal ECG
--- NOTE | 2020-02-14 19:30 | NUR ---
NURSE NOTES: Called to Dr Kaylah Vargas that bp 163/106 SR on the monitor 76, Spoke to Dr Bailey that theres a transfer order of the pt ask md if pt can still be transfer to tele. , md verbalized that he will call back.
--- NOTE | 2020-02-14 20:20 | NUR ---
NURSE NOTES: Carmita Tran assembly supervisor came to ICU verbaizing to charge preparation technician Destiney kate that she spoke to Dr Kaylah Vargas that its okay to transfer the pt with a current blood pressure.
[2020-02-14] MEDS: Dyna-Hex 2% Top Sol 2oz TOPIC SCH (20:30)
--- NOTE | 2020-02-14 20:30 | NUR ---
NURSE NOTES: Transfer to RM 204-1 via bed and belongings, report given to Yessenia TESFAYE
[2020-02-14] MEDS ORDERED: Iron Sucrose 100 MG in NS 55 ML IV SCH (21:00)
--- NOTE | 2020-02-14 21:07 | NUR ---
TRANSFER TO FLOOR: Patient transferred to Rm 204, per Dr Griffith. Report given to Yessenia TESFAYE. Belongings and medications given to Yessenia TESFAYE . Family and or S/O informed of transfer.
--- NOTE | 2020-02-14 22:07 | Cardiology Progress Note ---
Subjective DATE OF SERVICE: Feb 14, 2020 Remains in ICU Still with uncontrolled BP S/P HD/UF via IJ cath Objective Last 24 Hour Vital Signs Date Time Temp Pulse Resp B/P (MAP) Pulse Ox O2 Delivery O2 Flow Rate FiO2 02/14/20 21:36 78 158/102 02/14/20 21:36 78 158/102 02/14/20 20:00 97.4 76 24 163/106 (125) 100 02/14/20 19:05 71 24 166/106 (126) 100 02/14/20 18:00 74 22 150/92 (111) 100 02/14/20 17:00 69 20 142/90 (107) 100 02/14/20 16:00 73 02/14/20 16:00 97.8 78 24 153/99 (117) 99 02/14/20 16:00 Non-Rebreather 15.0 02/14/20 15:30 77 23 144/96 (112) 99 02/14/20 15:00 79 25 136/95 (109) 96 02/14/20 14:30 78 25 133/90 (104) 100 02/14/20 14:00 82 22 129/89 (102) 97 02/14/20 14:00 82 25 133/89 (104) 94 02/14/20 13:30 79 22 129/89 (102) 97 02/14/20 13:00 78 25 132/90 (104) 100 02/14/20 12:00 82 02/14/20 12:00 98.2 82 20 135/94 (108) 100 02/14/20 12:00 Non-Rebreather 15.0 02/14/20 11:30 82 23 149/97 (114) 100 02/14/20 11:00 86 23 137/92 (107) 100 02/14/20 10:30 86 23 132/92 (105) 91 02/14/20 10:00 86 24 131/89 (103) 91 02/14/20 09:30 85 23 126/84 (98) 100 02/14/20 09:10 96 139/93 02/14/20 09:09 89 139/93 02/14/20 09:00 90 23 134/90 (105) 98 02/14/20 08:30 86 22 133/93 (106) 99 02/14/20 08:00 Non-Rebreather 15.0 02/14/20 08:00 98.6 78 16 143/93 (110) 100 02/14/20 08:00 88 02/14/20 07:00 78 16 135/93 (107) 100 02/14/20 05:19 100 Nasal Cannula 3.0 32 02/14/20 04:33 68 157/105 02/14/20 04:31 152/100 02/14/20 04:00 83 02/14/20 04:00 Non-Rebreather 15.0 02/14/20 03:23 100 Venturi Mask 4.0 30 02/14/20 00:00 Non-Rebreather 15.0 02/13/20 22:45 77 18 143/96 (112) 100 02/13/20 22:30 81 21 153/111 (125) 100 02/13/20 22:15 95 26 171/114 (133) 91 02/13/20 22:00 91 17 146/101 (116) 95 02/13/20 21:45 101 27 130/85 (100) 99 HEENT: normal ENT inspection RHYTHM: NSR, ST, PACs LUNGS: rales bilaterally, other - right IJ line CARDIAC: regular rhythm, normal S1 and S2, gallop/S4 ABDOMEN: normal bowel sounds, non tender, soft, no organomegaly EXTREMITIES: +1 edema Laboratory Tests Test 02/14/20 05:25 White Blood Count 6.3 K/UL (4.8-10.8) Red Blood Count 2.58 M/UL (4.20-5.40) L Hemoglobin 7.4 G/DL (12.0-16.0) L Hematocrit 21.6 % (37.0-47.0) L Mean Corpuscular Volume 84 FL (80-99) Mean Corpuscular Hemoglobin 28.6 PG (27.0-31.0) Mean Corpuscular Hemoglobin Concent 34.2 G/DL (32.0-36.0) Red Cell Distribution Width 14.9 % (11.6-14.8) H Platelet Count 104 K/UL (150-450) L Mean Platelet Volume 6.1 FL (6.5-10.1) L Neutrophils (%) (Auto) % (45.0-75.0) Lymphocytes (%) (Auto) % (20.0-45.0) Monocytes (%) (Auto) % (1.0-10.0) Eosinophils (%) (Auto) % (0.0-3.0) Basophils (%) (Auto) % (0.0-2.0) Differential Total Cells Counted 100 Neutrophils % (Manual) 79 % (45-75) H Lymphocytes % (Manual) 13 % (20-45) L Monocytes % (Manual) 7 % (1-10) Eosinophils % (Manual) 1 % (0-3) Basophils % (Manual) 0 % (0-2) Band Neutrophils 0 % (0-8) Platelet Estimate Decreased L Platelet Morphology Normal Anisocytosis 1+ Sodium Level 136 MMOL/L (136-145) Potassium Level 4.5 MMOL/L (3.5-5.1) Chloride Level 100 MMOL/L (98-107) Carbon Dioxide Level 23 MMOL/L (21-32) Anion Gap 13 mmol/L (5-15) Blood Urea Nitrogen 50 mg/dL (7-18) H Creatinine 8.6 MG/DL (0.55-1.30) H Estimat Glomerular Filtration Rate 5.1 mL/min (>60) Glucose Level 92 MG/DL (74-106) Calcium Level 8.2 MG/DL (8.5-10.1) L Calcium (Send out) Pending Magnesium Level 2.1 MG/DL (1.8-2.4) Troponin I 0.126 ng/mL (0.000-0.056) Parathyroid Hormone (Intact) Pending Microbiology Date/Time Source Procedure Growth Status 02/13/20 10:45 Nasopharynx SARS-CoV-2 RdRp Gene Assay - Final Complete Assessment/Plan Assessment/Plan Hypertensive Urgency Anemia - CKD Acute myocardial ischemia Possible NSTEMI ESRD Ac/chr diastolic CHF HD/UF AntiHTN meds advanced anti-plt meds Hold anti-coag rx until BP control better Check lipids PRBC tx Abhishek Vargas MD Feb 14, 2020 22:07
[2020-02-14] MEDS: HydrALAZINE 50mg tab ORAL SCH (23:36)
[2020-02-15] VITALS: BP_SYST 154; BP_SYST 163; BP_DIAS 105; BP_DIAS 106
--- NOTE | 2020-02-15 00:02 | NUR ---
NURSE NOTES: Patient received from Shania TESFAYE. Patient in stable condition. Previous nurse endorsed patient's high bp, Dr. Vargas aware, no PRN meds for HTN. Patient brought in by hospital bed. Belongings list reviewed with patient and signed with outgoing nurse. Alert and oriented x4. Oriented to room and call light. Bed in lowest position and locked. Call light and bedside table within reach. WIll continue plan of care. Addendum: 02/15/20 at 0014 by Severo Eubanks RN Wrong time [id number]
[2020-02-15 04:00] VITALS: BP 144/92
[2020-02-15] MEDS ORDERED: Heparin 1000 units/ml 1ml Vial INJ PRN (06:00)
[2020-02-15] MEDS ORDERED: Heparin Sod 1000 units/ml 10ml IV PRN (06:00)
[2020-02-15] MEDS: HydrALAZINE 50mg tab ORAL SCH ×2 (06:31→12:00)
[2020-02-15 07:15] LABS: HEMATOCRIT 21.5 % (37.0-47.0); HEMOGLOBIN 7.3 G/DL (12.0-16.0); MEAN CORPUSCULAR VOLUME 83 FL (80-99); PLATELET COUNT 112 K/UL (150-450); RED CELL DISTRIBUTION WIDTH 14.8 % (11.6-14.8); WHITE BLOOD COUNT 5.9 K/UL (4.8-10.8)
--- NOTE | 2020-02-15 07:30 | NUR ---
NURSE NOTES: Received patient in bed. Awake, A/O x4. On room air, respirations unlabored. Patient denies pain. IV in the Left AC, site intact. Right chest permacath, site intact. Bed low and locked, side rails up x2.
--- NOTE | 2020-02-15 07:31 | NUR ---
NURSE HAND-OFF REPORT: Important Events on Shift:[Transferred from ICU] Patient Status: [Stable] Diet: [Renal Diet] Pending Orders: [] Pending Results/Labs:[] Pending MD notification:[] Latest Vital Signs: Temperature 97.9 , Pulse 83 , B/P 144 /92 , Respiratory Rate 18 , O2 SAT 94 , Room Air, O2 Flow Rate 3.0 . Vital Sign Comment: [] EKG Rhythm: Sinus Rhythm Rhythm change?: N MD Notified?: - MD Response: Latest Castillo Fall Score: 35 Fall Risk: Medium Risk Safety Measures: Call light Within Reach, Bed Alarm Zone 2, Side Rails Side Rails x3, Bed position Low and Locked. Fall Precautions: Yellow Socks Patient Fall Education Report given to [Eliseo TESFAYE].
[2020-02-15 07:44] LABS: ALBUMIN 2.9 G/DL (3.4-5.0); ALBUMIN/GLOBULIN RATIO 0.7 (1.0-2.7); BILIRUBIN,TOTAL 0.7 MG/DL (0.2-1.0); CALCIUM 7.7 MG/DL (8.5-10.1); CREATININE 10.4 MG/DL (0.55-1.30); PHOSPHORUS 4.9 MG/DL (2.5-4.9); POTASSIUM 4.6 MMOL/L (3.5-5.1)
[2020-02-15 08:00] VITALS: BP 133/88
--- NOTE | 2020-02-15 08:08 | NUR ---
NURSE NOTES: Young HD nurse from [facility] nephrology called and confirmed she will see patient today for HD.
[2020-02-15] MEDS ORDERED: Sensipar 30mg Tab ORAL SCH (09:00)
[2020-02-15] MEDS: Heparin 5000 units/ml inj SUBQ SCH (09:00)
[2020-02-15] MEDS: Pantoprazole Inj IVP SCH (09:13)
--- NOTE | 2020-02-15 09:28 | NUR ---
NURSE NOTES: Patietn refused subcut heparin injection d/t platelets of 112. Medication wasted in pyxis. PO BP meds and beta blockers held d/t HD treatment today.
--- NOTE | 2020-02-15 11:30 | NUR ---
NURSE NOTES: Patient refused PO phoslo. Patient re-educated on use, risks and benefits in [place]. Patient states "too much medication. Maybe tomorrow if my phosphate is high."
[2020-02-15 12:00] VITALS: BP 159/101
--- NOTE | 2020-02-15 13:15 | NUR ---
NURSE NOTES: PO hydralazine held d/t HD treatment.
--- NOTE | 2020-02-15 13:16 | Nephrology Progress Note ---
Assessment/Plan Plan Noncompliance CHF, Uremic. Getting very poor HD outside. Needs 3.5 h x3/week. Needs AVF! Needs better BP control. Has Large pleual effusion. DW Dr. Griffith Subjective Subjective No new c/o. On HD Objective Objective Last 24 Hour Vital Signs Date Time Temp Pulse Resp B/P (MAP) Pulse Ox O2 Delivery O2 Flow Rate FiO2 02/15/20 12:00 97.9 79 20 159/101 (120) 94 02/15/20 12:00 85 02/15/20 08:35 Room Air 02/15/20 08:00 98.1 89 20 133/88 (103) 94 02/15/20 08:00 94 02/15/20 07:15 94 Room Air 02/15/20 06:31 144/92 02/15/20 04:00 Room Air 02/15/20 04:00 97.9 83 18 144/92 (109) 94 02/15/20 04:00 83 02/15/20 00:00 97.7 83 24 154/105 (121) 93 02/15/20 00:00 83 02/15/20 00:00 Room Air 02/14/20 23:36 160/100 02/14/20 21:36 78 158/102 02/14/20 21:36 78 158/102 02/14/20 20:29 98 Nasal Cannula 3.0 32 02/14/20 20:00 97.4 76 24 163/106 (125) 100 02/14/20 20:00 72 02/14/20 20:00 Nasal Cannula 2.0 02/14/20 19:05 71 24 166/106 (126) 100 02/14/20 18:00 74 22 150/92 (111) 100 02/14/20 17:00 69 20 142/90 (107) 100 02/14/20 16:00 73 02/14/20 16:00 97.8 78 24 153/99 (117) 99 02/14/20 16:00 Non-Rebreather 15.0 02/14/20 15:30 77 23 144/96 (112) 99 02/14/20 15:00 79 25 136/95 (109) 96 02/14/20 14:30 78 25 133/90 (104) 100 02/14/20 14:00 82 22 129/89 (102) 97 9/22/20 14:00 82 25 133/89 (104) 94 02/14/20 13:30 79 22 129/89 (102) 97 Intake and Output 02/14/20 02/15/20 19:00 07:00 Intake Total 645 ml 0 ml Balance 645 ml 0 ml Intake Oral 450 ml 0 ml IV Total 195 ml Laboratory Tests 02/15/20 05:57: White Blood Count 5.9, Red Blood Count 2.60L, Hemoglobin 7.3L, Hematocrit 21.5L, Mean Corpuscular Volume 83, Mean Corpuscular Hemoglobin 28.1, Mean Corpuscular Hemoglobin Concent 34.0, Red Cell Distribution Width 14.8, Platelet Count 112L, Mean Platelet Volume 6.9, Neutrophils (%) (Auto) , Lymphocytes (%) (Auto) , Monocytes (%) (Auto) , Eosinophils (%) (Auto) , Basophils (%) (Auto) , Differential Total Cells Counted 100, Neutrophils % (Manual) 71, Lymphocytes % (Manual) 20, Monocytes % (Manual) 6, Eosinophils % (Manual) 3, Basophils % (Manual) 0, Band Neutrophils 0, Platelet Estimate DecreasedL, Platelet Morphology Normal, Sodium Level 135L, Potassium Level 4.6, Chloride Level 99, Carbon Dioxide Level 20L, Anion Gap 16H, Blood Urea Nitrogen 71H, Creatinine 10.4H, Estimat Glomerular Filtration Rate 4.2, Glucose Level 91, Calcium Level 7.7L, Phosphorus Level 4.9, Total Bilirubin 0.7, Aspartate Amino Transf (AST/SGOT) 25, Alanine Aminotransferase (ALT/SGPT) 18, Alkaline Phosphatase 58, Troponin I 0.051, Total Protein 7.1, Albumin 2.9L, Globulin 4.2, Albumin/Globulin Ratio 0.7L Height (Feet): 5 Height (Inches): 0.80 Weight (Pounds): 120 Objective CV RR RIJ PC Lungs CTA Abd SNT E No CCE. Scott Talavera MD Feb 15, 2020 13:16
--- NOTE | 2020-02-15 13:53 | NUR ---
CASE MANAGEMENT:REVIEW 02/15/20 SI: NSTEMI 97.9 79 20 159/101 94% ON RA H/H-7.3/21.5 BUN+71 CR+10.4 IS: IV VENOFER QHS NORVASC PO Q12 IV PROTONIX Q12 LABETALOL PO Q12 EPOETIN SQ MWF HEPARIN SQ Q12 : TELEMETRY STATUS DCP: FROM HOME
--- NOTE | 2020-02-15 15:05 | NUR ---
NURSE NOTES: Patient states she wants to go home today. Dr. Griffith made aware, with new orders for STAT thoracentesis and discharge after thoracentesis is done. HD completed with 3 liters removed.
--- NOTE | 2020-02-15 15:25 | NUR ---
NURSE NOTES: Rn attempted to witness consent form signed by patient for thoracentesis procedure. Patient refuses to sign consent. Patient states she does not want to have the procedure and her family does not want her to go through with the procedure. Patient states she will follow up with her primary care doctor when she goes home. Dr. Griffith informed, awaiting response.
[2020-02-15 16:00] VITALS: BP 140/100
--- NOTE | 2020-02-15 16:17 | General Progress Note ---
Subjective Allergies: Coded Allergies: BUMETANIDE (Verified Allergy, Unknown, 02/13/20) PENICILLINS (Verified Allergy, Unknown, 02/13/20) Subjective care noted improved bp better wants to go home Objective Last 24 Hour Vital Signs Date Time Temp Pulse Resp B/P (MAP) Pulse Ox O2 Delivery O2 Flow Rate FiO2 02/15/20 12:00 97.9 79 20 159/101 (120) 94 02/15/20 12:00 85 02/15/20 08:35 Room Air 02/15/20 08:00 98.1 89 20 133/88 (103) 94 02/15/20 08:00 94 02/15/20 07:15 94 Room Air 02/15/20 06:31 144/92 02/15/20 04:00 Room Air 02/15/20 04:00 97.9 83 18 144/92 (109) 94 02/15/20 04:00 83 02/15/20 00:00 97.7 83 24 154/105 (121) 93 02/15/20 00:00 83 02/15/20 00:00 Room Air 02/14/20 23:36 160/100 02/14/20 21:36 78 158/102 02/14/20 21:36 78 158/102 02/14/20 20:29 98 Nasal Cannula 3.0 32 02/14/20 20:00 97.4 76 24 163/106 (125) 100 02/14/20 20:00 72 02/14/20 20:00 Nasal Cannula 2.0 02/14/20 19:05 71 24 166/106 (126) 100 02/14/20 18:00 74 22 150/92 (111) 100 02/14/20 17:00 69 20 142/90 (107) 100 Intake and Output 02/14/20 02/15/20 19:00 07:00 Intake Total 645 ml 0 ml Balance 645 ml 0 ml Intake Oral 450 ml 0 ml IV Total 195 ml Laboratory Tests 02/15/20 05:57: White Blood Count 5.9, Red Blood Count 2.60L, Hemoglobin 7.3L, Hematocrit 21.5L, Mean Corpuscular Volume 83, Mean Corpuscular Hemoglobin 28.1, Mean Corpuscular Hemoglobin Concent 34.0, Red Cell Distribution Width 14.8, Platelet Count 112L, Mean Platelet Volume 6.9, Neutrophils (%) (Auto) , Lymphocytes (%) (Auto) , Monocytes (%) (Auto) , Eosinophils (%) (Auto) , Basophils (%) (Auto) , Differential Total Cells Counted 100, Neutrophils % (Manual) 71, Lymphocytes % (Manual) 20, Monocytes % (Manual) 6, Eosinophils % (Manual) 3, Basophils % (Manual) 0, Band Neutrophils 0, Platelet Estimate DecreasedL, Platelet Morphology Normal, Sodium Level 135L, Potassium Level 4.6, Chloride Level 99, Carbon Dioxide Level 20L, Anion Gap 16H, Blood Urea Nitrogen 71H, Creatinine 10.4H, Estimat Glomerular Filtration Rate 4.2, Glucose Level 91, Calcium Level 7.7L, Phosphorus Level 4.9, Total Bilirubin 0.7, Aspartate Amino Transf (AST/SGOT) 25, Alanine Aminotransferase (ALT/SGPT) 18, Alkaline Phosphatase 58, Troponin I 0.051, Total Protein 7.1, Albumin 2.9L, Globulin 4.2, Albumin/Globulin Ratio 0.7L Height (Feet): 5 Height (Inches): 0.80 Weight (Pounds): 120 Objective WDWN NAD clear breath sounds bilaterally without rhonchi or wheeze [id number] without MRG NABS nontender no HSM no CCE nonfocal Assessment/Plan Assessment/Plan: IMPRESSION: 1. End-stage disease. 2. Acute pulmonary edema. 3. Hypertension. 4. Hypertensive heart disease. 5. Hypertensive emergency, possible non-STEMI. PLAN wants to go home does not want tap d/w renal and cleared patient aware to follow up for changes Stan Griffith MD Feb 15, 2020 16:17
[2020-02-15] MEDS ORDERED: MYFORTIC180 MG PO (16:42)
[2020-02-15] MEDS ORDERED: MYCOPHENOLATE500 MG PO (16:43)
[2020-02-15] MEDS ORDERED: WEEKLY-D1250 MCG PO (16:45)
[2020-02-15] MEDS ORDERED: PREDNISONE1 MG PO (16:45)
[2020-02-15] MEDS ORDERED: FLECAINIDE ACE100 MG ORAL (16:45)
[2020-02-15] MEDS ORDERED: BUMETANIDE1 MG ORAL (16:47)
--- NOTE | 2020-02-15 16:52 | NUR ---
NURSE NOTES: Dr. Griffith gave order for patient to discharge home without thoracentesis. Patient made aware.
[2020-02-15] MEDS ORDERED: Tubing IV Secondary IV ONE (17:34)
--- NOTE | 2020-02-15 17:35 | NUR ---
NURSE NOTES: Patient discharged to home via family member's private vehicle. On room air, respirations unlabored. Patient denies pain. ID band removed, Iv site removed, belongings list verified.
--- NOTE | 2020-02-16 12:22 | Discharge Summary ---
Discharge Summary Discharge Summary _ DATE OF ADMISSION: 02/13/2020 DATE OF DISCHARGE: 02/15/2020 DISCHARGED BY: Dr. Griffith REASON FOR ADMISSION: 39 years old female with past medical history of hypertension, CHF, end-stage renal disease, on hemodialysis, presented to emergency room with shortness of breath by paramedics from home. Upon arrival patient was tripoding. Patient was unable to speak in full sentences. No reported fever and chills. No reported sick contacts. Rapid COVID-19 was negative. Vital signs revealed tachycardia , tachypnea , significantly elevated blood pressure 230/164 , and hypoxia ( saturating 82% on the room air). Laboratory work-up revealed no leukocytosis .hemoglobin 8.5.hematocrit 25 .platelet count 111. BUN 67, creatinine 10.7, consistent with known history of end-stage renal disease. Lactic acid 0.8. Troponin 0.073, proBNP above 35,000. EKG revealed sinus tachycardia , no acute ischemic changes. CXR demonstrated extensive bilateral interstitial and airspace edema versus infiltrate , moderate to large bilateral pleural effusion. Cardiomegaly. Patient admitted with hypertensive emergency, pulmonary edema, end-stage renal disease on hemodialysis. CONSULTANTS: mash filter operator automobile sales representative Dr. Talavera [facility] COURSE: Patient admitted to telemetry floor. Patient was initially on nitroglycerin drip. Cardiology and nephrology followed. Second troponin elevated 0.126 , last troponin negative. Antiplatelet therapy with aspirin continued. Echocardiogram revealed preserved ejection fraction 55 to 60% with mild left ventricular hypertrophy. No evidence of wall motion abnormality. Right ventricular systolic pressure of 49. Antihypertensive medication regimen optimized and consistent of multiply antihypertensive, including labetalol, amlodipine ,hydralazine. DVT prophylaxis provided. Supplemental oxygen provided and titrated to keep pulse oximetry above 92%, pulmonary toilet provided. Patient required nonrebreather mask and BiPAP during her stay in the hospital. Hemodialysis with ultrafiltration provided as per automobile sales representative . Volumes,renal parameters and electrolytes were closely monitored. Hemoglobin and hematocrit were closely monitored with goal to keep hemoglobin above 7. Patient was on Epogen Prior to discharge hemoglobin 7.3 , hematocrit 21.5. Blood pressure improved with current regimen. Shortness of breath resolved. As she clinically improved , she was able to be weaned to the room air ; pulse oximetry was stable on room air prior to discharge. Patient clinically stabilized and was ready for discharge home. FINAL DIAGNOSES: Acute pulmonary edema-resolved Hypertensive urgency with hypertensive heart disease Acute myocardial ischemia Possible NSTEMI Acute on chronic diastolic congestive heart failure End-stage renal disease , on hemodialysis Anemia of chronic kidney disease DISCHARGE MEDICATIONS: See Medication Reconciliation list. DISCHARGE INSTRUCTIONS: Patient was discharged home. Follow-up with a primary care provider in 1 week. Follow up with outpatient HD as scheduled I have been assigned to dictate discharge summary for this account. I was not involved in the patient's management. Nidia Mahmood NP Feb 16, 2020 12:22
== END 2020-02-15 17:35 | disposition home or self-care (01) | DRG 194 ==
LOC: EDBD 10:43 → EMR 11:10 → EDBEDREQ 11:15 → ICU 13:21 → EDBEDREQ 14:17 → EDBEDREQSVC 15:13 → EDBEDREQ 15:13 → 2E 02-14 20:47
PROC: 5A1D70Z Performance of Urinary Filtration, Intermittent, Less than 6 Hours Per Day (ICD-10-PCS; principal; 2020-02-13)
PROC: 5A09357 Assistance with Respiratory Ventilation, Less than 24 Consecutive Hours, Continuous Positive Airway Pressure (ICD-10-PCS; 2020-02-13)
DX: I13.2 Hypertensive heart and chronic kidney disease with heart failure and with stage 5 chronic kidney disease, or end stage renal disease (principal); I16.1 Hypertensive emergency; I21.4 Non-ST elevation (NSTEMI) myocardial infarction; N18.6 End stage renal disease; I50.33 Acute on chronic diastolic (congestive) heart failure; D63.1 Anemia in chronic kidney disease; Z88.0 Allergy status to penicillin; Z91.15 Patient's noncompliance with renal dialysis; Z88.8 Allergy status to other drugs, medicaments and biological substances
CPT/HCPCS: 36415; 71045; 80048; 80053; 82803; 83605; 83735; 83880; 83970; 84100; 84484; 85007; 85025; 86706; 87040; 87081; 93005; 93306; 96365; 96367; 96375; 99291; 99292; U0002